=== PATIENT | female | born 1995 | race Caucasian/White ===

== ENCOUNTER 2017-06-22 04:16 | Emergency (ER) | payer OTHER | END 2017-06-22 06:52 | disposition home or self-care (01) | LOC: FTE 04:16 | DX: J06.9 Acute upper respiratory infection, unspecified (principal) | CPT/HCPCS: 99284; Z7502 ==

== ENCOUNTER 2017-11-10 14:33 | Emergency (ER) | payer OTHER | END 2017-11-10 14:53 | disposition home or self-care (01) | LOC: E/R 14:33 | DX: T16.1XXA Foreign body in right ear, initial encounter (principal); X58.XXXA Exposure to other specified factors, initial encounter; Y92.9 Unspecified place or not applicable | CPT/HCPCS: 69200; 99282-25 ==

== ENCOUNTER 2018-04-15 21:23 | Emergency (ER) | payer OTHER | END 2018-04-15 22:59 | disposition home or self-care (01) | LOC: FTE 21:23 | DX: R21 Rash and other nonspecific skin eruption (principal) | CPT/HCPCS: 99282; Z7502 ==